=== PATIENT | male | born 1980 | race Caucasian/White ===

== ENCOUNTER 2016-08-13 15:24 | Emergency (ER) | payer OTHER ==
[2016-08-13 16:34] LABS: Hematocrit 45 % (42-52); Hemoglobin 14.9 g/dl (14.0-18.0); Mean Corpuscular HGB Conc 33 g/dl (31-36); Mean Corpuscular Hemoglobin 30 pg (27-31); Mean Corpuscular Volume 91 fL (80-94); Mean Platelet Volume 9 um3 (7.4-10.4); Red Blood Count 4.97 10^6/ul (4.0-5.4); Red Cell Distribution Width 13 % (10.5-15); White Blood Count 14.1 10^3/ul (3.5-10.8)
[2016-08-13 16:50] LABS: Albumin 4.7 g/dL (3.2-5.2); BUN/Creatinine Ratio 15.2 (8-20); Calcium 9.4 mg/dL (8.6-10.3); EGFR African American 96.5 (>60); EGFR Non-African American 75.1 (>60); Globulin 3.1 g/dL (2-4); Total Bilirubin 0.4 mg/dL (0.2-1.0); Total Protein 7.8 g/dL (6.4-8.9)
[2016-08-13 16:51] LABS: Troponin I 0.01 ng/mL (<0.04)
[2016-08-13 17:22] LABS: TSH (Thyroid Stimulating Horm) 4.71 mcIU/mL (0.34-5.60)
[2016-08-13 17:48] VITALS: BP 143/65
--- NOTE | 2016-08-13 19:07 | ED ---
Jewel Mustafa Rebecca, scribed for Goldie Reyes MD on 08/13/16 at 1636 . Laceration/Wound HPI - HPI Summary HPI Summary: Pt is a 36 y/o M who presents to ED c/o chin laceration s/p mechanical fall. At 1315 today the pt suddenly began feeling lightheaded, leading to a mechanical fall. Denies hitting anywhere on his head besides the chin. Lightheadedness has since resolved. [place] snot remember fall. Associated pain is currently mild, ranked 3/10 and has been constant since onset. Sx aggravated and alleviated by nothing. Episodes of similar lightheadedness have occurred previously. Tetanus UTD. - History of Current Complaint Stated Complaint: FALL CHIN LAC Time Seen by Provider: 08/13/16 16:20 Hx Obtained From: Patient Mechanism of Injury: Other - Mechanical fall Onset/Duration: Sudden Onset, Still Present Aggravating: Nothing Alleviating: Nothing Timing: Constant Onset Severity: Mild Current Severity: Mild Pain Intensity: 3 Pain Scale Used: 0-10 Numeric Associated Signs & Symptoms: Pain - Allergy/Home Medications Allergies/Adverse Reactions: Allergies Allergy/AdvReac Type Severity Reaction Status Date / Time No Known Allergies Allergy Verified 08/13/16 15:44 PMH/Surg Hx/FS Hx/Imm Hx Endocrine/Hematology History: Denies: Hx Diabetes Cardiovascular History: Denies: Hx Coronary Artery Disease, Hx Hypertension Infectious Disease History: No Infectious Disease History: Denies: Traveled Outside the [place] in Last 30 Days - Family History Known Family History: Positive: Unknown - Pt was adopted, does not know FHx - Social History Alcohol Use: None Substance Use Type: Reports: None Smoking Status (MU): Light Every Day Tobacco Smoker Review of Systems Positive: Other - Laceration on the chin Neurological: Other - Lightheadedness prior to fall, [employer] All Other Systems Reviewed And Are Negative: Yes Physical Exam - Summary Physical Exam Summary: General: Well appearing, no pain distress Skin: Warm, Skin Color Reflects Adequate Perfusion, Dry. Has a 3 cm laceration on the chin. Eyes: EOMI, HERMINIO ENT: Pharynx normal, TMs normal Neck: Supple, nontender Respiratory: CTA, breath sounds present, no rhonchi, no wheezes, no rales Cardiovascular: RRR, no murmur, no rub, no gallop Abdomen: Soft, nontender, Non-distended, no guarding, no rebound Bowel: Present Musculoskeletal: ASHWIN, No edema Neuro: Sensory/motor intact, A&Ox3, CN intact 2-12 Psych: Affect/mood appropriate Triage Information Reviewed: Yes Vital Signs On Initial Exam: Initial Vitals Temp Pulse Resp BP Pulse Ox 98.4 F 77 18 140/80 100 08/13/16 15:44 08/13/16 15:44 08/13/16 15:44 08/13/16 15:44 08/13/16 15:44 Vital Signs Reviewed: Yes - [place] Coma Scale Coma Scale Total: 15 Procedures - Laceration/Wound Repair 1 Location: face Description: Stellate Anesthesia: 1.0%, L[place], Epi Length, Depth and Shape: 4 cm length Irrigated w/ Saline (ccs): 250 - Normal saline Closure: Single Layer Suture Type: Nylon Number of Sutures: 5 Diagnostics - Vital Signs Vital Signs Temp Pulse Resp BP Pulse Ox 08/13/16 16:14 146/86 08/13/16 15:44 98.4 F 77 18 140/80 100 - Laboratory Lab Results: Lab Results 08/13/16 08/13/16 Range/Units 16:20 16:20 WBC 14.1 H (3.5-10.8) 10^3/ul RBC 4.97 (4.0-5.4) 10^6/ul Hgb 14.9 (14.0-18.0) g/dl Hct 45 (42-52) % MCV 91 (80-94) fL MCH 30 (27-31) pg MCHC 33 (31-36) g/dl RDW 13 (10.5-15) % Plt Count 179 (150-450) 10^3/ul MPV 9 (7.4-10.4) um3 Neut % (Auto) 83.9 H (38-83) % Lymph % (Auto) 10.0 L (25-47) % [place] % (Auto) 5.7 (1-9) % Eos % (Auto) 0.2 (0-6) % Baso % (Auto) 0.2 (0-2) % Absolute Neuts (auto) 11.8 H (1.5-7.7) 10^3/ul Absolute Lymphs (auto) 1.4 (1.0-4.8) 10^3/ul Absolute Monos (auto) 0.8 (0-0.8) 10^3/ul Absolute Eos (auto) 0 (0-0.6) 10^3/ul Absolute Basos (auto) 0 (0-0.2) 10^3/ul Absolute Nucleated RBC 0.01 10^3/ul Nucleated RBC % 0.1 Sodium 138 (133-145) mmol/L Potassium 4.0 (3.5-5.0) mmol/L Chloride 102 (101-111) mmol/L Carbon Dioxide 28 (22-32) mmol/L Anion Gap 8 (2-11) mmol/L BUN 17 (6-24) mg/dL Creatinine 1.12 (0.67-1.17) mg/dL Est GFR ( Amer) 96.5 (>60) Est GFR (Non-Af Amer) 75.1 (>60) BUN/Creatinine Ratio 15.2 (8-20) Glucose 102 H (70-100) mg/dL Calcium 9.4 (8.6-10.3) mg/dL Magnesium 2.0 (1.9-2.7) mg/dL Total Bilirubin 0.40 (0.2-1.0) mg/dL AST 29 (13-39) U/L ALT 17 (7-52) U/L Alkaline Phosphatase 70 (34-104) U/L Troponin I 0.01 (<0.04) ng/mL Total Protein 7.8 (6.4-8.9) g/dL Albumin 4.7 (3.2-5.2) g/dL Globulin 3.1 (2-4) g/dL Albumin/Globulin Ratio 1.5 (1-3) TSH 4.71 (0.34-5.60) mcIU/mL Result Diagrams: 08/13/16 16:20 08/13/16 16:20 Lab Statement: Any lab studies that have been ordered have been reviewed, and results considered in the medical decision making process. - EKG 1604 Cardiac Rate: NL - 72 bpm EKG Rhythm: Sinus Rhythm Laceration Repair Course/Dx - Course Course Of Treatment: pt with syncopal episode after a long drag on a cigarette resulting in chin lac as he fell to a concrete floor he denies head or neck pain. laceration repaired after 250 cc ns irrigation Assessment/Plan: Patient medications reviewed this visit. - Clinical Impression Provider Diagnoses: Syncope, Chin laceration Discharge - Discharge Plan Condition: Stable Disposition: HOME Patient Education Materials: Syncope (ED), Facial Laceration (ED) Referrals: Non Staff,Doctor [Primary Care Provider] - 3 Days (Have sutures removed in 3-5 days. ) The documentation as recorded by the Jewel arreaga Rebecca accurately reflects the service I personally performed and the decisions made by me, Goldie Reyes MD.
== END 2016-08-13 18:35 | disposition home or self-care (01) ==
LOC: ED 15:24
DX: S01.81XA Laceration without foreign body of other part of head, initial encounter (principal); W18.39XA Other fall on same level, initial encounter; Y92.9 Unspecified place or not applicable; R55 Syncope and collapse
CPT/HCPCS: 12013; 36415; 80053; 83735; 84443; 84484; 85025; 93005; 99282